=== PATIENT | male | born 1990 | race Caucasian/White ===

== ENCOUNTER 2017-02-02 14:15 | Emergency (ER) | payer SELFPAY ==
[~2017-02-02] VITALS: Ht 177.8 cm; Wt 100.0 kg
[2017-02-02 18:18] VITALS: BP 138/99
[2017-02-02] MEDS ORDERED: METHOCARBAMOL 500 MG TABLET PO ONE (18:30)
[2017-02-02] MEDS ORDERED: KETOROLAC TROMETHAMINE 60 MG/2 ML VIAL IM ONE (18:30)
== END 2017-02-02 18:58 | disposition home or self-care (01) ==
LOC: EMS 14:18
DX: R51 Headache (principal)
CPT/HCPCS: 72040; 96372; 99284; J1885